=== PATIENT | male | born 1970 | race African-American/Black ===

== ENCOUNTER → 2018-11-11 | Outpatient (CLI) | payer OTHER | LOC: RAD 09:55 | DX: M19.011 Primary osteoarthritis, right shoulder (principal); M19.012 Primary osteoarthritis, left shoulder; M48.07 Spinal stenosis, lumbosacral region; M25.462 Effusion, left knee; M76.892 Other specified enthesopathies of left lower limb, excluding foot; M77.51 Other enthesopathy of right foot and ankle ==